=== PATIENT | female | born 1975 | race Caucasian/White ===

== ENCOUNTER 2017-01-04 17:16 | Emergency (ER) | payer OTHER ==
[~2017-01-04] VITALS: Ht 162.6 cm; Wt 118.0 kg
[2017-01-04 17:17] VITALS: BP 158/75
[2017-01-04] MEDS ORDERED: IMIT50 PO (17:20)
[2017-01-04] MEDS ORDERED: ONDA4TAB5 PO (17:20)
[2017-01-04] MEDS ORDERED: IBUP-2028 PO (17:20)
[2017-01-04] MEDS ORDERED: [UNRECOGNIZED DRUG - CODE] IJ (17:20)
== END 2017-01-04 21:15 | disposition left against medical advice (07) ==
LOC: ER 17:55
DX: Z53.21 Procedure and treatment not carried out due to patient leaving prior to being seen by health care provider (principal)